=== PATIENT | female | born 1995 | race Hispanic/Latino ===

== ENCOUNTER 2020-11-11 17:40 | Outpatient (CLI) | payer OTHER, SELFPAY ==
[2020-11-11 21:21] LABS: BHCG - Serum Negative (NEGATIVE); Pregs Control Background? CLEAR/WHITE (CLR/WHITE); Pregs Control Bar Appear? YES (CONTROL BAR)
[2020-11-12 06:59] LABS: SARS-CoV-2 PCR by NAA Not Detected (NotDetected)
== END 2020-11-11 17:41 | disposition home or self-care (01) ==
LOC: LABBT 17:40
PROVIDERS: ATTEND Orthopaedic Surgery
DX: Z01.812 Encounter for preprocedural laboratory examination (principal); Z20.822 Contact with and (suspected) exposure to COVID-19
CPT/HCPCS: 84703; 87635; U0003; U0005

== ENCOUNTER 2020-11-14 08:34 | Day surgery (SDC) | payer OTHER ==
[2020-11-12 14:11] VITALS: BMI 27.3
[2020-11-14] MEDS ORDERED: Ropivacaine 0.5% HCl/PF (150 MG/30 ML VIAL) ONE ×2 (10:19→11:20)
[2020-11-14] MEDS ORDERED: Midazolam HCl 2 mg/2 ml Vial ONE (10:19)
[2020-11-14] MEDS ORDERED: Fentanyl 100 MCG/2 ML VIAL ONE ×2 (10:19→10:52)
[2020-11-14] MEDS ORDERED: Bupivacaine PF 0.5% 30 ML VIAL ONE (10:20)
[2020-11-14] MEDS ORDERED: traMADol HCl 50 MG TAB PO PRN ×2 (11:15)
[2020-11-14] MEDS ORDERED: Zolpidem Tartrate 5 MG TAB PO PRN (11:15)
[2020-11-14] MEDS ORDERED: Ropivacaine 0.2% 550 ML 550 ML NERVE BLCK SCH (11:15)
[2020-11-14] MEDS ORDERED: Promethazine HCl 25 MG/ML VIAL IM PRN (11:15)
[2020-11-14] MEDS ORDERED: Ondansetron PF 4 MG/2 ML Vial IVP PRN (11:15)
[2020-11-14] MEDS ORDERED: HYDROcodone/Acetaminophen 5/325 mg Tablet PO PRN ×2 (11:15)
[2020-11-14] MEDS ORDERED: Bupivacaine HCl 0.5%/Epinephrine 1:200,000/PF 30 ml Vial ONE (11:20)
[2020-11-14] MEDS ORDERED: PHENYLEPHRINE-NS 100 MCG/ML 10 ML SYRINGE ONE (11:20)
[2020-11-14] MEDS ORDERED: PROPOFOL 200 MG/20 ML VIAL ONE (11:20)
[2020-11-14] MEDS ORDERED: Lidocaine 1% PF 5 ML VIAL ONE (11:20)
[2020-11-14] MEDS ORDERED: ePHEDrine Sulfate 50 MG/10 ML VIAL ONE (11:20)
[2020-11-14] MEDS ORDERED: Ondansetron PF 4 MG/2 ML Vial ONE (11:20)
== END 2020-11-14 15:30 | disposition home or self-care (01) ==
LOC: SDC 08:34
PROVIDERS: ATTEND Orthopaedic Surgery
PROC: 0QSH04Z Reposition Left Tibia with Internal Fixation Device, Open Approach (ICD-10-PCS; principal; 2020-11-14)
PROC: 0QSK04Z Reposition Left Fibula with Internal Fixation Device, Open Approach (ICD-10-PCS; principal; 2020-11-14)
DX: S82.842A Displaced bimalleolar fracture of left lower leg, initial encounter for closed fracture (principal)
CPT/HCPCS: 76000; A4306; C1713; C1769; J0690; J2250; J2405; J2704; J2795; J3010; S0020